=== PATIENT | male | born 1940 | race Caucasian/White ===

== ENCOUNTER 2021-11-06 13:32 | Emergency (ER) | payer MEDICARE, SELFPAY ==
[2021-11-06 13:44] VITALS: BP 196/89; PULSE 114; RESP 16; TEMP 36.2; O2SAT 98
--- NOTE | 2021-11-06 14:22 | ED.GENADULT ---
HPI - General Adult General Chief complaint: Extremity Injury, Lower Stated complaint: hip/knee pain Time Seen by Provider: 11/06/21 14:23 Source: patient and RN notes reviewed Mode of arrival: ambulatory Limitations: no limitations History of Present Illness HPI narrative: 81-year-old male presents concern for right hip pain. Reports pain starts in his buttock radiates to the hip and down to the right knee. He denies any injury or trauma. He reports he is seeing therapy for his left hip has began having right hip pain. Reports has been using a cane for mobility due to the pain. He denies any redness, swelling, bruising, open skin. Reports has been taking Tylenol arthritis that relief MD complaint: Hip pain Related Data Home Medications Medication Instructions Recorded Confirmed alprazolam 0.25 mg PO TID PRN 11/06/21 11/06/21 atorvastatin 20 mg PO DAILY 11/06/21 11/06/21 glimepiride 4 mg PO DAILY 11/06/21 11/06/21 hydrochlorothiazide 25 mg PO DAILY 11/06/21 11/06/21 insulin detemir U-100 [Levemir 100 unit SUBCUT DAILY 11/06/21 11/06/21 FlexTouch U-100 Insuln] levothyroxine [Synthroid] 137 mcg PO DAILY 11/06/21 11/06/21 metformin 1,000 mg PO BID 11/06/21 11/06/21 quinapril 40 mg PO DAILY 11/06/21 11/06/21 Allergies Allergy/AdvReac Type Severity Reaction Status Date / Time No Known Allergies Allergy Verified 11/06/21 14:28 Review of Systems Review of Systems: CONSTITUTIONAL: Denies malaise, chills, sweats, or fever. CARDIOVASCULAR: Denies chest pain, palpitations, or edema. RESPIRATORY: Denies cough or dyspnea. SKIN: Denies rash or itching, bruising, redness, swelling. MUSCULOSKELETAL: Reports right hip and knee pain NEUROLOGIC: Denies numbness, weakness All systems reviewed & are unremarkable except as noted in HPI and below PMFSH Family History Family History (Updated 06/16/16 @ 23:19 by DOCTOR UNKNOWN) Sibling Family history of diabetes mellitus in first degree relative Father Family history of heart disease in male family member before age 55 Social History Social History Smoking status: Never smoker Alcohol intake: never Comments At time of signature, agree with nursing past medical, surgical, social and family history. There is no relevant family history pertinent to the presenting complaint Exam Narrative: GENERAL: Well-appearing, well-nourished, and in no acute distress. HEAD: Normocephalic, atraumatic. EYES: PERRLA, conjunctivae clear NECK: Supple. CHEST: Speaks in full sentences. No respiratory distress. HEART: Regular rate and rhythm. Normal and equal peripheral pulses. EXTREMITIES: Right hip, leg, knee have normal sensation, grossly normal range of motion. No edema. 5/5 strength with hip flexion. Normal sensation with sensitivity to light touch and pain. Anterior knee tenderness. Distal pulses palpable and equal bilaterally, skin warm, dry, pink. Capillary refill less than 3 seconds. SKIN: Warm, dry, no rash. NEURO: Alert and oriented x3. PSYCH: Normal mood and affect Course Course Emergency Course: Patient is aware of diagnosis, understands and agrees to treatment plan. Anticipatory guidance given. Patient agrees to follow-up as directed and is aware of reasons to seek care at the emergency department. Portions of this record may have been created with voice recognition software Vital Signs Vital signs: Vital Signs Temperature 97.1 F L 11/06/21 13:44 Pulse Rate 114 H 11/06/21 13:44 Respiratory Rate 16 11/06/21 13:44 Blood Pressure 196/89 H 11/06/21 13:44 Pulse Oximetry 98 11/06/21 13:44 Temperature 97.1 F L 11/06/21 13:44 Pulse Rate 114 H 11/06/21 13:44 Respiratory Rate 16 11/06/21 13:44 Blood Pressure 196/89 H 11/06/21 13:44 Pulse Oximetry 98 11/06/21 13:44 Reviewed. Patient has history of high blood pressure Medical Decision Making MDM Narrative Medical decision making narrative: Patients pain is consistent with musculoskeletal etiology.
== END 2021-11-06 14:45 | disposition home or self-care (01) ==
PROVIDERS: Emergency Provider Nurse Practitioner; PCP Internal Medicine
DX: M25.551 Pain in right hip (principal); M19.90 Unspecified osteoarthritis, unspecified site; E78.00 Pure hypercholesterolemia, unspecified; I10 Essential (primary) hypertension; E11.9 Type 2 diabetes mellitus without complications; E03.9 Hypothyroidism, unspecified; F41.9 Anxiety disorder, unspecified
CPT/HCPCS: 99213; G0463

== ENCOUNTER 2021-11-28 11:41 | Emergency (ER) | payer MEDICARE, SELFPAY ==
[2021-11-28 11:52] VITALS: BP 188/117; PULSE 120; RESP 20; TEMP 36.4; O2SAT 100
--- NOTE | 2021-11-28 12:48 | ED.BACK ---
HPI - Back Pain/Injury General Chief Complaint: Back Pain/Injury Stated Complaint: lower back pain Source: patient Mode of arrival: ambulatory Limitations: no limitations History of Present Illness HPI Narrative: 81-year-old male presented for complaint of chronic back pain radiating down right leg. States he can barely lift himself out of this wheelchair, using a cane, has had falls at home since pain started. MRI is ordered for 12/08/2021. Endorses his PCP will be sending in a prescription for hydrocodone. He completed a course of steroids approximately 5 days ago. States this is the same pain he has been having x2 months. MD elicited complaint: back pain Related Data Home Medications Medication Instructions Recorded Confirmed alprazolam 0.25 mg PO TID PRN 11/06/21 11/28/21 atorvastatin 20 mg PO DAILY 11/06/21 11/28/21 glimepiride 4 mg PO DAILY 11/06/21 11/28/21 hydrochlorothiazide 25 mg PO DAILY 11/06/21 11/28/21 insulin detemir U-100 [Levemir 100 unit SUBCUT DAILY 11/06/21 11/28/21 FlexTouch U-100 Insuln] levothyroxine [Synthroid] 137 mcg PO DAILY 11/06/21 11/28/21 metformin 1,000 mg PO BID 11/06/21 11/28/21 quinapril 40 mg PO DAILY 11/06/21 11/28/21 prednisone 20 mg PO DAILY 11/28/21 11/28/21 Allergies Allergy/AdvReac Type Severity Reaction Status Date / Time No Known Allergies Allergy Verified 11/28/21 12:23 Review of Systems Review of Systems: CONSTITUTIONAL: Denies body aches, fever, chills, or sweats. EYES: Denies visual changes, redness, or discharge. ENT: Denies rhinorrhea, congestion, sore throat, or otalgia. CARDIOVASCULAR: Denies chest pain, palpitations, or edema. RESPIRATORY: Denies cough or dyspnea. GASTROINTESTINAL: Denies abdominal pain, nausea, vomiting, or diarrhea. GENITOURINARY: Denies dysuria or hematuria. SKIN: Denies rash, itching, or wounds. MUSCULOSKELETAL: Endorses back pain radiating down right leg NEUROLOGIC: Denies numbness, tingling, or weakness. PSYCH: Denies depression or anxiety. PMFSH Family History Family History Sibling Family history of diabetes mellitus in first degree relative Father Family history of heart disease in male family member before age 55 Social History Social History Smoking status: Never smoker Alcohol intake: never Comments At time of signature, I have reviewed and agree with nursing past medical, surgical, social and family history unless otherwise noted. Please see nursing chart for further information. There is no relevant family history pertinent to the presenting complaint Exam Narrative: GENERAL: appears in pain, well-nourished, and in no acute distress. HEAD: Normocephalic, atraumatic. EYES: EOMI. No redness or drainage. Conjunctivae normal. ENT: Mucous membranes pink and moist. NECK: Normal AROM. Supple. CHEST: No respiratory distress. Clear to auscultation. HEART: tachycardic normal rhythm. No murmur appreciated. Normal peripheral pulses. ABDOMEN: Soft, nontender, nondistended, normal active bowel sounds. MUSCULOSKELETAL: tender to L- spine approx L1-L3 and paraspinal muscles; cane, w/c EXTREMITIES: Normal range of motion. No edema. SKIN: Warm, dry, no rash. Capillary refill normal. Normal skin turgor. NEURO: No focal deficits. Alert and oriented x3. unsteady gait PSYCH: Normal affect. anxiety Course Course Emergency Course: We discussed plan for pt to restart hydrocodone per pcp toradol IM today MRI pending per pcp Patient is aware of diagnosis, understands and agrees to treatment plan. Anticipatory guidance given. Patient agrees to follow-up as directed and is aware of reasons to seek care at the emergency department. Portions of this record may have been created with voice recognition software Level of Care: Express Care Visit Vital Signs Vital signs: Vital Signs Temperature 97.6 F 11/28/21
[2021-11-28] MEDS: ACETAMINOPHEN 500 MG TABLET 1000 MG PO (13:07)
[2021-11-28] MEDS: KETOROLAC 30 MG/ML VIAL (*BKC) IM (13:10)
== END 2021-11-28 13:15 | disposition home or self-care (01) ==
PROVIDERS: Emergency Provider Nurse Practitioner Family; PCP Internal Medicine
DX: M54.16 Radiculopathy, lumbar region (principal); E78.00 Pure hypercholesterolemia, unspecified; I10 Essential (primary) hypertension; M19.90 Unspecified osteoarthritis, unspecified site; E11.9 Type 2 diabetes mellitus without complications; E03.9 Hypothyroidism, unspecified; Z98.42 Cataract extraction status, left eye; Z98.41 Cataract extraction status, right eye; F41.9 Anxiety disorder, unspecified
CPT/HCPCS: 96372; 99213; A9270; G0463; J1885

== ENCOUNTER 2024-08-29 12:46 | Emergency (ER) | payer MEDICARE, SELFPAY ==
[2024-08-29 12:55] VITALS: BP 179/80; PULSE 95; RESP 20; TEMP 37.2; O2SAT 100
--- NOTE | 2024-08-29 13:52 | ED.WOUNDLAC ---
HPI - Wound/Laceration General Chief Complaint: Wound/Laceration Stated Complaint: Wound Check Time Seen by Provider: 08/29/24 13:52 Source: patient, RN notes reviewed and old records reviewed Mode of arrival: ambulatory Limitations: no limitations History of Present Illness HPI narrative: 83-year-old male presents to the [facility] with 2 wounds 1 to the right posterior buttock, 1 to the left lateral mid thigh. States they started yesterday. believes they were some type of bug bite Significant erythema, induration and fluctuance noted to the thigh. Redness, mild swelling noted to the buttock. Related Data Home Medications Medication Instructions Recorded Confirmed alprazolam 0.25 mg tablet 0.25 mg PO TID PRN Anxiety 11/06/21 08/29/24 atorvastatin 20 mg tablet 20 mg PO DAILY 11/06/21 08/29/24 glimepiride 4 mg tablet 4 mg PO DAILY 11/06/21 08/29/24 hydrochlorothiazide 25 mg tablet 25 mg PO DAILY 11/06/21 08/29/24 insulin detemir U-100 100 unit/mL 100 unit subcut DAILY 11/06/21 08/29/24 (3 mL) subcutaneous pen (Levemir FlexTouch U-100 Insulin) levothyroxine 137 mcg tablet 137 mcg PO DAILY 11/06/21 08/29/24 (Synthroid) metformin 1,000 mg tablet 1,000 mg PO BID 11/06/21 08/29/24 quinapril 40 mg tablet 40 mg PO DAILY 11/06/21 08/29/24 amlodipine 5 mg tablet 5 mg PO DAILY 08/29/24 08/29/24 Allergies Allergy/AdvReac Type Severity Reaction Status Date / Time No Known Allergies Allergy Verified 08/29/24 13:07 Review of Systems Review of Systems: All systems reviewed & are unremarkable except as noted in HPI and below Constitutional: Constitutional: Reports no additional constitutional complaints Eyes: Eyes: Reports no additional eye complaints ENT: Reports system reviewed and no additional complaints, except as documented Cardiovascular: Cardiovascular: Reports no additional cardiovascular complaints, Denies chest pain and Denies dyspnea Respiratory: Respiratory: Reports no additional respiratory complaints, Denies chest congestion, Denies cough and Denies dyspnea Gastrointestinal: Gastrointestinal: Reports no additional gastrointestinal complaints, Denies abdominal pain, Denies nausea and Denies vomiting Musculoskeletal: Musculoskeletal: Reports no additional musculoskeletal complaints Integumentary/Breasts: Skin/Breast: Reports as per HPI Neurologic: Reports system reviewed and no additional complaints, except as documented Psychiatric: Psychiatric: Reports no additional psychiatric complaints Allergic/Immunologic: Allergic/Immunologic: Reports no additional allergic/immunologic complaints PMFSH Family History Family History Sibling Family history of diabetes mellitus in first degree relative Father Family history of heart disease in male family member before age 55 Social History Social History Smoking status: Never smoker Alcohol intake: never Comments At the time of my signature, I reviewed and agree with the nursing past medical, surgical, social, and family history. There is no relevant family history pertinent to the patient complaint. Exam Const: General: cooperative, healthy appearing, comfortable, no acute distress, well developed, alert and well nourished Nutritional Appearance: well nourished Orientation/consciousness: patient oriented x3 Limitations: no limitations HENMT: Head: normal to inspection Ears: hearing grossly normal bilaterally and external ears normal Face/Nose/Sinus: Normal external nose present, normal facial exam and face symmetric Face and sinus: normal facial exam and face symmetric Eyes: General: appearance normal, both eyes and all related structures Alignment and Position: alignment normal Periorbital: periorbital findings normal Neck: Neck: normal visual inspection, full ROM, no lymphadenopathy and no meningeal signs Chest: Chest palpation & ins
[2024-08-29 14:00] LABS: Glucose Point of Care 68 mg/dl (65-105)
[2024-08-29] MEDS: LIDOCAINE HCL 1% LOCAL INJ 2 ML AMPUL 4 ML INFILTRATE (14:25)
== END 2024-08-29 14:45 | disposition home or self-care (01) ==
PROVIDERS: Emergency Provider Nurse Practitioner; PCP Internal Medicine
DX: L02.31 Cutaneous abscess of buttock (principal); L02.416 Cutaneous abscess of left lower limb; L03.317 Cellulitis of buttock; L03.116 Cellulitis of left lower limb; E78.00 Pure hypercholesterolemia, unspecified; I10 Essential (primary) hypertension; M19.90 Unspecified osteoarthritis, unspecified site; E11.9 Type 2 diabetes mellitus without complications; E03.9 Hypothyroidism, unspecified; F41.9 Anxiety disorder, unspecified; Z98.42 Cataract extraction status, left eye; Z98.41 Cataract extraction status, right eye
CPT/HCPCS: 10060; 82948; 87070; 87075; 87181; 87205; 99213; G0463; J2003

== ENCOUNTER 2024-09-13 14:07 | Emergency (ER) | payer MEDICARE, SELFPAY ==
[2024-09-13 14:29] VITALS: BP 138/61; PULSE 76; RESP 20; TEMP 37.4; O2SAT 99
--- NOTE | 2024-09-13 14:40 | ED.WOUNDLAC ---
HPI - Wound/Laceration General Chief Complaint: Wound/Laceration Stated Complaint: Left Hand Laceration Time Seen by Provider: 09/13/24 14:40 Source: patient, RN notes reviewed and old records reviewed Mode of arrival: ambulatory Limitations: no limitations History of Present Illness HPI narrative: Patient presents with complaints of laceration to left 3rd digit he reports that he lacerated hand just prior to arrival. Hit the blade on a chain saw. Chainsaw was not turned on at the time. Minimal active bleeding. Neurovascular status and sensation intact. Tetanus is out of date. No other injury or trauma. No other complaints today. 0.0.0.0.0.0.0.0.0.0.0.0.0.0.0.0.0.0.0.0.0.0.0.0.0.0.0.0.0.0.0.0.0.0.0.0.0.0.0.0.0.0.0.0.0.0.0.0.0.0.0.0.0.0.0.0.0.0.0.0.0.0.0.0.0.0.0.0.0.0.0.0.0.0.0.0.0.0.0.0.0.0.0.0.0.0.0.0.0.0.0.0.0.0.0.0.0.0.0.0.0.0.0.0.0.0.0.0.0.0.0.0.0.0.0.0.0.0.0.0.0.0.0.0.0. 0.0.0.0.0.0.0.0.0.0.0.0.0.0.0.0.0 Related Data Home Medications Medication Instructions Recorded Confirmed alprazolam 0.25 mg tablet 0.25 mg PO TID PRN Anxiety 11/06/21 09/13/24 atorvastatin 20 mg tablet 20 mg PO DAILY 11/06/21 09/13/24 glimepiride 4 mg tablet 4 mg PO DAILY 11/06/21 09/13/24 hydrochlorothiazide 25 mg tablet 25 mg PO DAILY 11/06/21 09/13/24 insulin detemir U-100 100 unit/mL 100 unit subcut DAILY 11/06/21 09/13/24 (3 mL) subcutaneous pen (Levemir FlexTouch U-100 Insulin) levothyroxine 137 mcg tablet 137 mcg PO DAILY 11/06/21 09/13/24 (Synthroid) metformin 1,000 mg tablet 1,000 mg PO BID 11/06/21 09/13/24 quinapril 40 mg tablet 40 mg PO DAILY 11/06/21 09/13/24 amlodipine 5 mg tablet 5 mg PO DAILY 08/29/24 09/13/24 Allergies Allergy/AdvReac Type Severity Reaction Status Date / Time No Known Allergies Allergy Verified 09/13/24 14:10 Review of Systems Review of Systems: All systems reviewed & are unremarkable except as noted in HPI and below Constitutional: Constitutional: Reports no additional constitutional complaints ENT: Reports system reviewed and no additional complaints, except as documented Cardiovascular: Cardiovascular: Reports no additional cardiovascular complaints Respiratory: Respiratory: Reports no additional respiratory complaints Gastrointestinal: Gastrointestinal: Reports no additional gastrointestinal complaints Integumentary/Breasts: Skin/Breast: Reports system reviewed and no additional complaints, except as docu, Reports as per HPI and Reports wounds PMFSH Family History Family History Sibling Family history of diabetes mellitus in first degree relative Father Family history of heart disease in male family member before age 55 Social History Social History Smoking status: Never smoker Alcohol intake: never Comments At the time of my signature, I reviewed and agree with the nursing past medical, surgical, social, and family history. There is no relevant family history pertinent to the patient complaint. Exam Const: General: cooperative, no acute distress, alert and awake Orientation/consciousness: oriented to person, oriented to place and oriented to time HENMT: Head: normal to inspection Resp: Effort & Inspection: normal respiratory effort and able to speak in complete sentences Auscultation: clear to auscultation bilaterally, no crackles, no rales, no rhonchi and no wheezes Cardio: Palpation: normal PMI Rate: regular rate Rhythm: regular rhythm Heart sounds: S1 normal heart sound present and S2 normal heart sound present Skin: Wounds: wounds noted laceration left plantar 3rd finger size (2.5), open and other (Irregular) Neuro: General: oriented to person, oriented to place and oriented to time Cranial nerves: Yes CN's II-XII intact bilaterally Psych: Appearance: grossly normal Thought process: Normal thought process present Insight: Good insight present (Psych) Judgement: Good judgement present (Psych) Course Course Level of Care: Express Care Visit Vital Signs Vital signs: Vital Signs Temperature 99.3 F 09/13/24 14:29 Pulse Rate 76 09/13/24 14:29 Respiratory Rate 20 09/13/24 14:29 Blood Pressure 138/61 09/13/24 14:29 Pulse Oximetry 99 09/13/24 14:29 Oxygen Delivery Room Air 09/13/24 14:29 Temperature 99.3 F 09/13/24 14:29 Pulse Rate 76 09/13/24 14:29 Respiratory Rate 20 09/13/24 14:29 Blood Pressure 138/61 09/13/24 14:29 Pulse Oximetry 99 09/13/24 14:29 Oxygen Delivery Room Air 09/13/24 14:29 Reviewed Procedures Laceration Laceration 1: Date: 09/13/24 Time: 16:04 Site: hand Side (If applicable): left Size (cm): 2.5 Description: irregular Depth: simple, single layer Local Anesthetic: lidocaine 1% Amount of anesthesia used (mL): 4 Pre-repair: irrigated and irrigated extensively ====== Skin Level ====== Skin layer closed with: nylon Size (cm): 4-0 Number of sutures: 4 Technique: simple, interrupted ====== Subcutaneous Layer ====== ====== Muscle Layer ====== ====== Tendon Layer ====== MDM - Wound/Laceration MDM Narrative Medical decision making narrative: Patient with laceration to the right 3rd digit, easily repaired. No complications. CMS intact. Instructed on proper wound care. Discharge instructions reviewed with patient, as well as provided in writing per nursing staff. The instructions also include specific and strict return/GO TO THE ER as well as f/u information. All questions have been answered, and the patient deny any further questions with discharge and discharge plan. Some parts of this dictation were generated by voice recognition software and may contain typographical and/or grammatical inaccuracies. Differential Diagnosis Differential diagnosis: Likely laceration, abrasion and avulsion of skin Medical Records Attestation: I reviewed the patient's medical records. Discharge Plan Discharge Clinical Impression: Laceration Patient Disposition: Home, Self-Care Condition: Stable Instructions: Antibiotic Form, Care For Your Stitches (ED) Additional Instructions: Keep affected area clean and dry. Sutures to be removed in 7-10 days. Follow-up with primary care provider. Emergency department for new or worse symptoms. Take all medications as prescribed Patient Language: Salvadorean Prescriptions: New amoxicillin-pot clavulanate 875-125 mg tablet 1 tablet PO Q12H Qty: 20 0RF No Action levothyroxine [Synthroid] 137 mcg tablet 137 mcg PO DAILY atorvastatin 20 mg tablet 20 mg PO DAILY quinapril 40 mg tablet 40 mg PO DAILY alprazolam 0.25 mg tablet 0.25 mg PO TID PRN (Reason: Anxiety) metformin 1,000 mg tablet 1,000 mg PO BID glimepiride 4 mg tablet 4 mg PO DAILY hydrochlorothiazide 25 mg tablet 25 mg PO DAILY Levemir FlexTouch U100 Insulin 100 unit/mL (3 mL) insulin pen 100 unit SUBCUT DAILY amlodipine 5 mg tablet 5 mg PO DAILY Follow-up/Referrals: Guy,Med Diaz MD [Primary Care Provider] - Time of Disposition: 16:10
[2024-09-13] MEDS: LIDOCAINE HCL 1% LOCAL INJ 2 ML AMPUL 4 ML INFILTRATE (15:32)
[2024-09-13] MEDS: TETANUS,DIPHTHERIA,AC PERTUSSIS ADULT (0.5 ML) BOOSTRIX IM (15:33)
== END 2024-09-13 16:15 | disposition home or self-care (01) ==
PROVIDERS: Emergency Provider Nurse Practitioner Family; PCP Internal Medicine
DX: S61.213A Laceration without foreign body of left middle finger without damage to nail, initial encounter (principal); W29.3XXA Contact with powered garden and outdoor hand tools and machinery, initial encounter; Z23 Encounter for immunization; E78.00 Pure hypercholesterolemia, unspecified; I10 Essential (primary) hypertension; M19.90 Unspecified osteoarthritis, unspecified site; E11.9 Type 2 diabetes mellitus without complications; E03.9 Hypothyroidism, unspecified; F41.9 Anxiety disorder, unspecified; Z98.42 Cataract extraction status, left eye; Z98.41 Cataract extraction status, right eye
CPT/HCPCS: 12001; 90471; 90715; 99213; G0463; J2003

== ENCOUNTER 2025-11-08 15:01 | Emergency (ER) | payer MEDICARE, SELFPAY ==
[2025-11-08 15:15] VITALS: BP 137/54; PULSE 80; RESP 18; TEMP 36.4; O2SAT 100
--- NOTE | 2025-11-08 15:31 | ED_ITS ---
HPI - Wound/Laceration General Chief Complaint: Wound/Laceration Stated Complaint: lump on back of neck Time Seen by Provider: 11/08/25 15:27 Source: patient and RN notes reviewed Mode of arrival: ambulatory Limitations: no limitations History of Present Illness HPI narrative: 85-year-old male patient with history of insulin-dependent diabetes presents today with redness and pain to the right posterior scalp. He was seen in the ER at [facility] and placed on a 5 day course of Bactrim for cellulitis. States symptoms not improved. He has been applying topical lidocaine and Prid Salve without relief. Related Data Home Medications ?Medication ?Instructions ?Recorded ?Confirmed ?Last Taken ?Type alprazolam 0.25 mg tablet 0.25 mg PO TID PRN Anxiety 1 01/07/21 09/13/24 Unknown History atorvastatin 20 mg tablet 20 mg PO DAILY 11/06/2108/20 Unknown History glimepiride 4 mg tablet 4 mg PO DAILY 11/06/2109/13 Unknown History hydrochlorothiazide 25 mg tablet 25 mg PO DAILY 09/13/24 Unknown History insulin detemir U-100 100 unit/mL 100 unit subcut BRENT Y 11/06/21 09/13/24 Unknown History (3 mL) subcutaneous pen (Levemir FlexTouch U-100 Insulin) levothyroxine 137 mcg tablet 137 mcg PO DAILY 11/06/21 09/13/24 Unknown History (Synthroid) metformin 1,000 mg tablet 1,000 mg PO BID 11/06/21 Unknown History quinapril 40 mg tablet 40 mg PO DAILY 11/06/2108/20 Unknown History amlodipine 5 mg tablet 5 mg PO DAILY 08/29/2409/13 Unknown History Allergies Allergy/AdvReac Type Severity Reaction Status Date / Time No Known Allergies Allergy Verified 11/08/25 15:07 [facility] Past Medical History Medical History (Updated 11/08/25 @ 16:03 by Cinthia Ramírez APRN, [facility]) Hypothyroidism Hypercholesterolemia Diabetes Family History Family History Sibling Family history of diabetes mellitus in first degree relative Father Family history of heart disease in male family member before age 55 Social History Social History (Reviewed 11/08/25 @ 15:38 by Cinthia Ramírez, [employer] DIRECTOR, RENAL DIALYSIS TECHNICIAN) Smoking status: Never smoker Alcohol intake: never Comments At time of signature, I have reviewed and agree with nursing past medical, surgical, social and family history unless otherwise noted. Please see nursing chart for further information. There is no relevant family history pertinent to the presenting complaint Exam Narrative: GENERAL: Well-appearing, well-nourished, and in no acute distress. HEAD: Normocephalic. 5x7cm area of erythema and induration to the posterior scalp with small scab in the center. TTP. Slight fluctuance noted. See procedure note. EYES: EOMI. No redness or drainage. Conjunctivae normal. ENT: Mucous membranes pink and moist. NECK: Normal AROM. CHEST: No respiratory distress. EXTREMITIES: Normal range of motion. No edema. SKIN: Warm, dry, no rash. Capillary refill normal. Normal skin turgor. NEURO: No focal deficits. Alert and oriented x3. Gait steady with cane. PSYCH: Normal affect. No signs of depression or anxiety. Course Course Level of Care: Express Care Visit Vital Signs Vital signs: Vital Signs Temperature 97.6 F 11/08/25 15:15 Pulse Rate 80 11/08/25 15:15 Respiratory Rate 18 11/08/25 15:15 Blood Pressure 137/54 L 11/08/25 15:15 Pulse Oximetry 100 11/08/25 15:15 Oxygen Delivery Room Air 11/08/25 15:15 Temperature 97.6 F 11/08/25 15:15 Pulse Rate 80 11/08/25 15:15 Respiratory Rate 18 11/08/25 15:15 Blood Pressure 137/54 L 11/08/25 15:15 Pulse Oximetry 100 11/08/25 15:15 Oxygen Delivery Room Air 11/08/25 15:15 Reviewed Procedures Abscess I/D posterior scalp: Date of Incision: 11/08/25 Time of Incision: 15:50 Local Anesthetic: lidocaine 1% and with epi Amount of anesthesia used (mL): 3 Technique: incised with #11 blade Amount of fluid expressed (mL): 5 Irrigation: Yes Packing used?: iodoform (wick) I&D Results: Pus and Blood Abcess I&D Additional Comments: dressed with nonadherent dressing. MDM MDM Narrative Medical decision making narrative: 85-year-old male patient with history of insulin-dependent diabetes presents today with redness and pain to the right posterior scalp. He was seen in the ER at [facility] and placed on a 5 day course of Bactrim for cellulitis. States symptoms not improved. He has been applying topical lid ocaine and Prid Salve without relief. Upon exam, 5 x 7 cm area of erythema and induration with some fluctuance to the right posterior scalp. Incision and drainage performed with copious purulent discharge resulting. With iodoform wick placed with nonadherent dressing. Bactrim discontinued and patient switched to course of doxycycline. Wound culture obtained. Patient presents plan. Vital signs stable. Anticipatory guidance given. Differential Diagnosis Differential Diagnosis: Abscess, cellulitis Critical Care Time Critical Care Time Critical Care Time: No Discharge Plan Discharge Clinical Impression: Scalp abscess Patient Disposition: Home Condition: Stable Instructions: Antibiotic Form, Abscess (ED), Abscess Incision and Drainage (DC) Additional Instructions: The abscess under scalp has been lanced and drained. Please keep the dressing dry and intact and remove the wick in 48 hours. After this, wash with soap and water daily and keep covered until scabbed over. Stop the Bactrim and start the doxycycline as prescribed until gone. Follow-up with your PCP in 3 days if symptoms are not improving. Go to the ER immediately if symptoms worsen. You will be notified by telephone if your antibiotics need to be changed based on the wound culture results. Patient Language: Portuguese Prescriptions: New doxycycline hyclate 100 mg tablet 100 mg PO BID 7 Days Qty: 14 0RF No Action levothyroxine [Synthroid] 137 mcg tablet 137 mcg PO DAILY atorvastatin 20 mg tablet 20 mg PO DAILY quinapril 40 mg tablet 40 mg PO DAILY alprazolam 0.25 mg tablet 0.25 mg PO TID PRN (Reason: Anxiety) metformin 1,000 mg tablet 1,000 mg PO BID glimepiride 4 mg tablet 4 mg PO DAILY hydrochlorothiazide 25 mg tablet 25 mg PO DAILY Levemir FlexTouch U100 Insulin 100 unit/mL (3 mL) insulin pen 100 unit SUBCUT DAILY amlodipine 5 mg tablet 5 mg PO DAILY Follow-up/Referrals: Guy,Med Diaz MD [Primary Care Provider] Time of Disposition: 16:06
[2025-11-08] MEDS: LIDO 1%/EPINEPHRINE 1:100,000 20 ML VIAL 4 ML INFILTRATE (15:41)
== END 2025-11-08 16:15 | disposition home or self-care (01) ==
PROVIDERS: Emergency Provider Nurse Practitioner; PCP Internal Medicine
DX: L02.811 Cutaneous abscess of head [any part, except face] (principal); E11.9 Type 2 diabetes mellitus without complications; Z79.84 Long term (current) use of oral hypoglycemic drugs; E78.00 Pure hypercholesterolemia, unspecified; E03.9 Hypothyroidism, unspecified
CPT/HCPCS: 10061; 87070; 87147; 87186; 87205; 99213; G0463; J2004